=== PATIENT | male | born 1985 | race Two or more races ===

== ENCOUNTER 2023-12-19 11:57 | Emergency (ER) | payer OTHER ==
[~2023-12-19] VITALS: Ht 170.2 cm; Wt 77.2 kg
[2023-12-19] MEDS: ACETAMINOPHEN 500 MG TAB PO ONE (13:29)
[2023-12-19] MEDS: TETANUS-DIPTH-ACEL PERTUSSIS 0.5ML SYR Tdap IM ONE (13:56)
[2023-12-19] MEDS ORDERED: BACDST PO (14:56)
[2023-12-19] MEDS ORDERED: NAPR-746 PO (14:56)
[2023-12-19] MEDS: NEOMYCIN-BACITRACIN-POLYM 15GM TOP OINT TOP SCH ×3 (14:57→15:28)
[2023-12-19] MEDS: cefTRIAXone SOD 1,000 MG VL IM ONE (15:17)
[2023-12-19 15:29] VITALS: BP 136/87; PULSE 88; RESP 16; TEMP 98.6; O2SAT 99
== END 2023-12-19 15:30 | disposition home or self-care (01) ==
LOC: ER 12:03
DX: S61.213A Laceration without foreign body of left middle finger without damage to nail, initial encounter (principal); W31.9XXA Contact with unspecified machinery, initial encounter; Y93.89 Activity, other specified; Y92.89 Other specified places as the place of occurrence of the external cause; Y99.0 Civilian activity done for income or pay
CPT/HCPCS: 12002; 73130; 90471; 90715; 96372; 99284; J0696